=== PATIENT | female | born 1965 | race African-American/Black ===

== ENCOUNTER 2016-09-25 19:50 | Emergency (ER) | payer MEDICAID, OTHER ==
[~2016-09-25] VITALS: Ht 167.6 cm; Wt 145.0 kg
[2016-09-25 19:53] VITALS: BP 163/77
[2016-09-25] MEDS ORDERED: KETOROLAC 30 MG/1 ML ONE (20:17)
[2016-09-25] MEDS ORDERED: KETOROLAC 30 MG/1 ML IM ONE (20:30)
== END 2016-09-25 21:21 | disposition home or self-care (01) ==
LOC: ED 21:00
DX: S39.012A Strain of muscle, fascia and tendon of lower back, initial encounter (principal); M54.16 Radiculopathy, lumbar region; X50.9XXA Other and unspecified overexertion or strenuous movements or postures, initial encounter; Y93.89 Activity, other specified; Y92.89 Other specified places as the place of occurrence of the external cause; Y99.8 Other external cause status
CPT/HCPCS: 72110; 82962; 96372; 99285; J1885; J7512

== ENCOUNTER 2017-02-07 13:10 | Emergency (ER) | payer MEDICAID, OTHER ==
[~2017-02-07] VITALS: Ht 170.2 cm; Wt 96.0 kg
[2017-02-07 13:11] VITALS: BP 141/87
[2017-02-07] MEDS ORDERED: HYDROcodone/APAP 5/325 TABLET PO ONE (14:00)
[2017-02-07] MEDS ORDERED: HYDROcodone/APAP 5/325 TABLET ONE (14:22)
== END 2017-02-07 14:49 | disposition home or self-care (01) ==
LOC: ED 14:29
DX: M72.2 Plantar fascial fibromatosis (principal); I27.20 Pulmonary hypertension, unspecified
CPT/HCPCS: 36415; 84550; 99285

== ENCOUNTER 2017-02-12 13:57 | Emergency (ER) | payer MEDICAID, OTHER ==
[~2017-02-12] VITALS: Ht 168.9 cm; Wt 145.1 kg
[2017-02-12 13:59] VITALS: BP 156/92
[2017-02-12] MEDS ORDERED: HYDROcodone/APAP 5/325 TABLET PO ONE (15:00)
[2017-02-12] MEDS ORDERED: HYDROcodone/APAP 5/325 TABLET ONE (15:26)
== END 2017-02-12 16:05 | disposition home or self-care (01) ==
LOC: ED 15:54
DX: M72.2 Plantar fascial fibromatosis (principal); I10 Essential (primary) hypertension; M54.30 Sciatica, unspecified side
CPT/HCPCS: 99283

== ENCOUNTER 2018-08-08 17:41 | Emergency (ER) | payer MEDICAID, OTHER ==
[~2018-08-08] VITALS: Ht 167.6 cm; Wt 141.5 kg
[2018-08-08] MEDS ORDERED: ONDANSETRON ODT 4 MG PO ONE (18:00)
--- NOTE | 2018-08-08 18:18 | NUR ---
pt c/o of nausea and vommitting x1 day. "cannot hold anything down" pt had very bad abd cramps last night. pt had pain duing urination. denies diarrhea, blood in stool. hx pulm htn.
[2018-08-08 18:27] LABS: BASOPHILS # (AUTO) 0.03 x10^3/uL (0-0.1); BASOPHILS % (AUTO) 0 % (0-1); EOSINOPHILS # (AUTO) 0.15 x10^3/uL (0-0.4); EOSINOPHILS % (AUTO) 2 % (1-7); LYMPHOCYTES # (AUTO) 1.61 x10^3/uL (1-3.4); LYMPHOCYTES % (AUTO) 20 % (22-44); MD NO; MEAN CORPUSCULAR HEMOGLOBIN 27.4 pg (27.0-34.8); MEAN CORPUSCULAR HGB CONC 31.8 g/dL (32.4-35.8); MEAN PLATELET VOLUME 10.6 fL (7.4-10.4); MONOCYTES # (AUTO) 0.43 x10^3/uL (0.2-0.8); MONOCYTES % (AUTO) 5 % (2-9); NEUTROPHILS % (AUTO) 73 % (42-75); PLATELET COUNT 331 x10^3/uL (130-400); RED BLOOD COUNT 6.17 x10^6/uL (3.82-5.3); RED CELL DISTRIBUTION WIDTH 14.7 % (9.6-15.2)
[2018-08-08] MEDS ORDERED: METO-93 PO (18:33)
[2018-08-08] MEDS ORDERED: LISI-170 PO (18:33)
[2018-08-08] MEDS ORDERED: HYDR-3342 PO (18:33)
[2018-08-08] MEDS ORDERED: ONDANSETRON ODT 4 MG ONE (18:37)
[2018-08-08 18:40] LABS: ALANINE AMINOTRANSFERASE 30 U/L (12-78); ALBUMIN 3.8 g/dL (3.4-5.0); ANION GAP 9 mmol/L (5-15); CALCIUM 9.5 mg/dL (8.5-10.1); CHLORIDE 102 mmol/L (98-107); CREATININE 1.13 mg/dL (0.55-1.02)
[2018-08-08 18:42] LABS: ALKALINE PHOSPHATASE 138 U/L (45-117); BILIRUBIN,TOTAL 0.3 mg/dL (0.2-1.0); TOTAL PROTEIN 9.2 g/dL (6.4-8.2)
[2018-08-08] MEDS ORDERED: DICYCLOMINE 20 MG TABLET PO ONE (19:00)
[2018-08-08] MEDS ORDERED: ONDANSETRON ODT 8 MG PO ONE (19:00)
[2018-08-08] MEDS ORDERED: ONDANSETRON ODT 8 MG ONE (19:05)
[2018-08-08] MEDS ORDERED: DICYCLOMINE 20 MG TABLET ONE (19:05)
--- NOTE | 2018-08-08 19:31 | NUR ---
pt medicated per may. poc discussed. po challenge initiated. pt and family deny further needs at this time.
--- NOTE | 2018-08-08 20:07 | NUR ---
PT HAS BEEN ABLE TO HOLD DOWN FLUIDS. INFORMED.
--- NOTE | 2018-08-08 20:28 | NUR ---
UA OBTAINED. MINIMAL SAMPLE PROVIDED. UA WALKED TO LAB. LAB STATES THEY WILL ATTEMPT TO RUN SAMPLE. INFORMED.
[2018-08-08 20:42] LABS: MICROSCOPIC INDICATED
[2018-08-08 20:56] LABS: CULTURE INDICATED? NO
[2018-08-08] MEDS ORDERED: ACETAMINOPHEN 500 MG TABLET ONE (21:07)
[2018-08-08] MEDS ORDERED: ACETAMINOPHEN 500 MG TABLET PO ONE (21:30)
[2018-08-08 21:38] VITALS: BP 154/74
== END 2018-08-08 21:40 | disposition home or self-care (01) ==
LOC: ED 19:19
DX: R10.84 Generalized abdominal pain (principal); R11.2 Nausea with vomiting, unspecified; K21.9 Gastro-esophageal reflux disease without esophagitis; I10 Essential (primary) hypertension
CPT/HCPCS: 36415; 80053; 81001; 83690; 85025; 93005; 99284; Q0162